=== PATIENT | female | born 1970 | race Hispanic/Latino ===

== ENCOUNTER 2018-01-08 14:41 | Observation (INO) | payer OTHER ==
[~2018-01-08] VITALS: Ht 167.6 cm; Wt 82.1 kg
[2018-01-08 16:12] VITALS: BP 144/73
[2018-01-08 16:18] LABS: BASOPHILS % (AUTO) 0.5 % (0.0-5.0); HEMATOCRIT 42.4 % (36-48); LYMPHOCYTES % (AUTO) 25.6 % (21.0-51.0); MEAN CORPUSCULAR HEMOGLOBIN 30.9 pg (27.0-33.0); MEAN CORPUSCULAR HGB CONC 33.6 g/dL (32.0-36.0); NEUTROPHILS % (AUTO) 66.9 % (40.0-77.0); PLATELET COUNT (AUTO) 258 K/uL (130-400); RED BLOOD CELL COUNT(AUTO) 4.61 MIL/uL (4.00-5.50); RED CELL DISTRIBUTION WIDTH 13.6 % (11.0-15.5); WHITE BLOOD COUNT (AUTO) 11.2 K/uL (4.8-10.8)
[2018-01-08 16:30] LABS: CREATININE 0.7 mg/dL (0.5-1.5); POTASSIUM 3.6 mmol/L (3.5-5.1)
[2018-01-08] MEDS ORDERED: TRAZ-185 PO (16:32)
[2018-01-08] MEDS ORDERED: ZOLP12.52 PO (16:32)
[2018-01-09] VITALS (29 sets, daily range): BP systolic 84–108; BP diastolic 50–70
[2018-01-09] MEDS ORDERED: LIDOCAINE PF 2% 5ML ABBOJECT ONE (06:41)
[2018-01-09] MEDS ORDERED: ONDANSETRON HCL 4 MG/2 ML VIAL ONE (06:41)
[2018-01-09] MEDS ORDERED: PROPOFOL 10 MG/ML 20ML VIAL IV ONE ×2 (06:42→10:24)
[2018-01-09] MEDS ORDERED: FAMOTIDINE/PF 20 MG/2 ML VIAL IV ONE (06:50)
[2018-01-09] MEDS ORDERED: KETAMINE 50MG/ML SYRINGE 50 MG/ML DISP.SYRIN IV ONE (06:52)
[2018-01-09] MEDS ORDERED: ACETAMINOPHEN EXTRA STRENGTH 500 MG TABLET ONE (08:02)
[2018-01-09] MEDS ORDERED: PREGABALIN 100 MG CAPSULE ONE (08:03)
[2018-01-09] MEDS: DEXMEDETOMIDINE HCL 400 MCG in SODIUM CHLORIDE 0.9% 96 ML IV SCH (08:15)
[2018-01-09] MEDS ORDERED: ROPIVACAINE 0.5% 5MG/ML 30ML IJ ONE ×2 (08:34→08:36)
[2018-01-09] MEDS ORDERED: DEXAMETHASONE SOD PHOSPHATE 4 MG/ML 1ML VIAL ONE (08:34)
[2018-01-09] MEDS ORDERED: MIDAZOLAM HCL 1 MG/ML 2ML VIAL ONE ×2 (08:39→10:25)
[2018-01-09] MEDS ORDERED: LACTATED RINGERS 1000ML 1,000 ML IV ONE (08:46)
[2018-01-09] MEDS: CEFAZOLIN SODIUM 1 GM VIAL ONE ×2 (08:49→10:17)
[2018-01-09] MEDS ORDERED: FENTANYL CITRATE PF 50 MCG/1 ML 2ML VIAL ONE ×3 (09:47→13:37)
[2018-01-09] MEDS ORDERED: EPHEDRINE SULFATE 50 MG/ML AMPULE ONE (10:26)
[2018-01-09] MEDS ORDERED: CEFAZOLIN SODIUM 1 GM VIAL ONE (10:28)
[2018-01-09] MEDS ORDERED: PHENYLEPHRINE HCL 10 MG/ML 1ML VIAL IV ONE (12:18)
[2018-01-09] MEDS ORDERED: MEPERIDINE-PF 25 MG/ML SYG ONE ×2 (13:06→13:17)
[2018-01-09] MEDS ORDERED: OXYCODONE HCL 5 MG TAB PO PRN (13:30)
[2018-01-09] MEDS ORDERED: TRAMADOL HCL 50 MG TABLET PO PRN (13:30)
[2018-01-09] MEDS ORDERED: POTASSIUM CHLORIDE 20 MEQ ERTAB PO PRN (13:30)
[2018-01-09] MEDS ORDERED: PROMETHAZINE HCL 25 MG/ML 1ML AMPULE IM PRN (13:30)
[2018-01-09] MEDS ORDERED: DiphenhydrAMINE HCL 50 MG/ML VIAL IVP PRN (13:30)
[2018-01-09] MEDS ORDERED: DIPHENHYDRAMINE HCL 25 MG CAPSULE PO PRN (13:30)
[2018-01-09] MEDS ORDERED: LIDOCAINE HCL-MPF 1% 2ML VIAL IVP PRN (13:30)
[2018-01-09] MEDS ORDERED: CALCIUM CARBONATE 500 MG TABLET PO PRN (13:30)
[2018-01-09] MEDS ORDERED: POTASSIUM CHLORIDE 20MEQ/100ML 100 ML IV PRN (13:30)
[2018-01-09] MEDS ORDERED: NALOXONE HCL 0.4 MG/1 ML ML IVP PRN (13:30)
[2018-01-09] MEDS ORDERED: FERROUS FUMARATE 324 MG TABLET PO PRN (13:30)
[2018-01-09] MEDS ORDERED: POTASSIUM CHLORIDE 10% ELIXIR 20 MEQ/15 ML UDCUP PO PRN (13:30)
[2018-01-09] MEDS: ACETAMINOPHEN EXTRA STRENGTH 500 MG TABLET PO SCH ×2 (14:25→21:10)
[2018-01-09] MEDS: KETOROLAC TROMETHAMINE 30MG/ML IV PRN ×2 (15:47→23:27)
[2018-01-09] MEDS: SODIUM CHLORIDE 0.9% 1000ML 1,000 ML IV SCH (15:50)
[2018-01-09] MEDS: MEPERIDINE 10MG/ML 50ML PCA 50 ML IV PRN (16:30)
[2018-01-09] MEDS: CEFAZOLIN SODIUM 1 GM VIAL IVP SCH (18:11)
[2018-01-09] MEDS: FAMOTIDINE 20MG TAB 20 MG TAB PO SCH (20:10)
[2018-01-09] MEDS: CELECOXIB 200 MG CAP PO SCH (20:10)
[2018-01-09] MEDS: ASPIRIN 325 MG TABLET PO SCH (20:10)
[2018-01-09] MEDS: PREGABALIN 25 MG CAP PO SCH (20:10)
[2018-01-09] MEDS ORDERED: ZOLPIDEM TARTRATE 5 MG TAB PO SCH (21:00)
[2018-01-09] MEDS ORDERED: TRAZODONE HCL 50 MG TAB PO SCH (21:00)
[2018-01-09] MEDS: OXYCODONE HCL 5 MG TAB PO PRN (23:28)
[2018-01-09] MEDS ORDERED: LORAZEPAM 2 MG/ML 1 ML VIAL IVP ONE (23:45)
[2018-01-10] MEDS ORDERED: LORAZEPAM 2 MG/ML 1 ML VIAL ONE (01:11)
[2018-01-10] MEDS: CEFAZOLIN SODIUM 1 GM VIAL IVP SCH (01:30)
[2018-01-10 04:27] VITALS: BP 119/69
[2018-01-10 04:29] VITALS: BP 97/49
[2018-01-10] MEDS: ACETAMINOPHEN EXTRA STRENGTH 500 MG TABLET PO SCH ×2 (06:36→13:09)
[2018-01-10 07:55] VITALS: BP 110/71
[2018-01-10] MEDS: PREGABALIN 25 MG CAP PO SCH (08:00)
[2018-01-10] MEDS: CELECOXIB 200 MG CAP PO SCH (08:00)
[2018-01-10] MEDS: ASPIRIN 325 MG TABLET PO SCH (08:00)
[2018-01-10] MEDS: FAMOTIDINE 20MG TAB 20 MG TAB PO SCH (08:00)
[2018-01-10] MEDS: DEXMEDETOMIDINE HCL 400 MCG in SODIUM CHLORIDE 0.9% 96 ML IV SCH (08:15)
[2018-01-10] MEDS ORDERED: TAMSULOSIN HCL 0.4 MG CAP.ER.24H PO SCH (09:00)
[2018-01-10] MEDS ORDERED: POLYETHYLENE GLYCOL 3350 17 GM POWD.PACK PO SCH (09:00)
[2018-01-10] MEDS: PSYLLIUM SEED 1 EACH PACKET PO SCH ×2 (12:00→13:09)
[2018-01-10] MEDS: MEPERIDINE 10MG/ML 50ML PCA 50 ML IV PRN (13:10)
[2018-01-10] MEDS: SODIUM CHLORIDE 0.9% 1000ML 1,000 ML IV SCH ×2 (13:10→13:26)
[2018-01-10 13:20] VITALS: BP 99/50
[2018-01-10] MEDS: KETOROLAC TROMETHAMINE 30MG/ML IV PRN ×2 (14:39→19:56)
[2018-01-10] MEDS: OXYCODONE HCL 5 MG TAB PO PRN ×2 (14:39→19:56)
[2018-01-10 16:59] VITALS: BP 104/69
[2018-01-10] MEDS ORDERED: OXYC10TA58 PO (19:13)
[2018-01-10] MEDS ORDERED: ACET-66 PO (19:13)
[2018-01-10 19:40] VITALS: BP 102/65
[2018-01-11] MEDS ORDERED: BISACODYL 5 MG TABLET.DR PO PRN (13:30)
[2018-01-12] MEDS ORDERED: BISACODYL 10 MG SUPP.RECT RC PRN (13:30)
== END 2018-01-10 21:00 | disposition home or self-care (01) ==
LOC: EDSTATUS 15:45 → DAHIP 01-09 06:15 → 4AH 01-09 13:49
PROVIDERS: ADMIT Orthopaedic Surgery; ATTEND Orthopaedic Surgery
DX: T87.89 Other complications of amputation stump (principal); L91.0 Hypertrophic scar; F43.10 Post-traumatic stress disorder, unspecified; F41.9 Anxiety disorder, unspecified; F32.9 Major depressive disorder, single episode, unspecified; Z98.42 Cataract extraction status, left eye; Z82.49 Family history of ischemic heart disease and other diseases of the circulatory system; Z90.710 Acquired absence of both cervix and uterus; Z23 Encounter for immunization; Z88.5 Allergy status to narcotic agent
CPT/HCPCS: 27884; 36415; 80048; 85025; 88304; 88311; 96365; 96366 ×2; 96375 ×2; 96376 ×2; A4649 ×2; A4930 ×2; A6223; C1713; G0008; G0378 ×40; J0690 ×4; J1100; J1885 ×4; J2001; J2060; J2175 ×4; J2250 ×2; J2370; J2405; J2704 ×2; J2795 ×2; J3010 ×3; J3490 ×4; J7030; J7120; Q2038

== ENCOUNTER 2018-01-19 23:14 | Inpatient (IN) | payer OTHER ==
[~2018-01-19] VITALS: Ht 167.6 cm; Wt 81.6 kg
[~2018-01-19 23:14] MED LIST: ACET-66 PO; OXYC10TA58 PO; TRAZ-185 PO; ZOLP12.52 PO
[2018-01-19] MEDS ORDERED: HYDROMORPHONE 1 MG/1 ML AMP ONE (23:55)
[2018-01-20] VITALS (30 sets, daily range): BP systolic 96–139; BP diastolic 50–78
[2018-01-20 01:11] LABS: CREATININE 0.6 mg/dL (0.5-1.5); POTASSIUM 3.7 mmol/L (3.5-5.1)
[2018-01-20 01:15] LABS: ALBUMIN 3.1 g/dL (3.5-5.0); BILIRUBIN,TOTAL 0.2 mg/dL (0.2-1.0)
[2018-01-20 01:26] LABS: BASOPHILS % (AUTO) 0.8 % (0.0-5.0); EOSINOPHILS % (AUTO) 1.2 % (0.0-8.0); HEMATOCRIT 33.4 % (36-48); LYMPHOCYTES % (AUTO) 19.9 % (21.0-51.0); MEAN CORPUSCULAR HGB CONC 33.6 g/dL (32.0-36.0); MEAN CORPUSCULAR VOLUME 92.2 fL (79-99); MONOCYTES % (AUTO) 7.2 % (3.0-13.0); NEUTROPHILS % (AUTO) 70.9 % (40.0-77.0); PLATELET COUNT (AUTO) 378 K/uL (130-400); RED BLOOD CELL COUNT(AUTO) 3.63 MIL/uL (4.00-5.50); RED CELL DISTRIBUTION WIDTH 13.5 % (11.0-15.5); WHITE BLOOD COUNT (AUTO) 11.7 K/uL (4.8-10.8)
[2018-01-20 01:36] LABS: INR 0.89 (0.85-1.15); PARTIAL THROMBOPLASTIN TIME 29.9 SEC (26.3-35.5); PROTHROMBIN TIME 9.4 SEC (9.6-11.6)
[2018-01-20] MEDS ORDERED: HYDROMORPHONE 1 MG/1 ML AMP ONE ×3 (02:07→10:00)
[2018-01-20] MEDS ORDERED: VANCOMYCIN 1GM+NS 250ML 250 ML IV ONE (02:29)
[2018-01-20] MEDS ORDERED: VANCOMYCIN PROTOCOL PER PHARMACY IV SCH (03:15)
[2018-01-20] MEDS ORDERED: CEFTAZIDIME PENTAHYDRATE 1 GM/VIAL ONE (03:22)
[2018-01-20] MEDS ORDERED: HYDROMORPHONE PCA 10 MG/50 ML 50 ML IV ONE (03:24)
[2018-01-20] MEDS: CEFTAZIDIME PENTAHYDRATE 1 GM/VIAL IVP SCH ×3 (03:48→18:56)
[2018-01-20] MEDS ORDERED: PHARMACY COMMUNICATION MISC SCH ×2 (04:00→04:15)
[2018-01-20] MEDS ORDERED: NALOXONE HCL 0.4 MG/1 ML ML IVP PRN (06:30)
[2018-01-20] MEDS ORDERED: PROPOFOL 10 MG/ML 20ML VIAL IV ONE ×2 (07:16→08:06)
[2018-01-20] MEDS ORDERED: LIDOCAINE PF 2% 5ML ABBOJECT ONE (07:16)
[2018-01-20] MEDS ORDERED: DEXAMETHASONE SOD PHOSPHATE 10MG/ML 1ML VIAL ONE ×2 (07:16→07:17)
[2018-01-20] MEDS ORDERED: FENTANYL CITRATE PF 50 MCG/1 ML 2ML VIAL ONE ×2 (07:16→08:16)
[2018-01-20] MEDS ORDERED: ONDANSETRON HCL 4 MG/2 ML VIAL ONE ×2 (07:16→07:17)
[2018-01-20] MEDS ORDERED: MIDAZOLAM HCL 1 MG/ML 2ML VIAL ONE ×2 (07:16→09:36)
[2018-01-20] MEDS ORDERED: CEFAZOLIN SODIUM 1 GM VIAL ONE ×2 (07:30→08:26)
[2018-01-20] MEDS ORDERED: MEPERIDINE-PF 25 MG/ML SYG ONE (09:27)
[2018-01-20] MEDS ORDERED: POTASSIUM CHLORIDE 20MEQ/100ML 100 ML IV PRN (09:30)
[2018-01-20] MEDS ORDERED: POTASSIUM CHLORIDE 20 MEQ ERTAB PO PRN (09:30)
[2018-01-20] MEDS ORDERED: DIPHENHYDRAMINE HCL 25 MG CAPSULE PO PRN (09:30)
[2018-01-20] MEDS ORDERED: POTASSIUM CHLORIDE 10% ELIXIR 20 MEQ/15 ML UDCUP PO PRN (09:30)
[2018-01-20] MEDS ORDERED: CALCIUM CARBONATE 500 MG TABLET PO PRN (09:30)
[2018-01-20] MEDS ORDERED: DiphenhydrAMINE HCL 50 MG/ML VIAL IVP PRN (09:30)
[2018-01-20] MEDS ORDERED: LIDOCAINE HCL-MPF 1% 2ML VIAL IVP PRN (09:30)
[2018-01-20] MEDS: SODIUM CHLORIDE 0.9% 1000ML 1,000 ML IV SCH ×2 (11:08→21:21)
[2018-01-20] MEDS: KETOROLAC TROMETHAMINE 30MG/ML IV PRN (12:31)
[2018-01-20] MEDS: VANCOMYCIN 1GM+NS 250ML 250 ML IV SCH ×2 (13:47→21:20)
[2018-01-20] MEDS: ACETAMINOPHEN EXTRA STRENGTH 500 MG TABLET PO SCH ×2 (13:47→21:19)
[2018-01-20] MEDS ORDERED: PREGABALIN 75 MG CAPSULE PO SCH (21:00)
[2018-01-20] MEDS: FAMOTIDINE 20MG TAB 20 MG TAB PO SCH (21:20)
[2018-01-20] MEDS: TRAZODONE HCL 50 MG TAB PO SCH (21:20)
[2018-01-20] MEDS: ZOLPIDEM TARTRATE 5 MG TAB PO SCH (21:30)
[2018-01-20] MEDS ORDERED: ZOLPIDEM TARTRATE 5 MG TAB ONE (21:46)
[2018-01-20] MEDS ORDERED: PREGABALIN 25 MG CAP ONE (23:06)
[2018-01-21 03:00] VITALS: BP 98/65
[2018-01-21] MEDS: CEFTAZIDIME PENTAHYDRATE 1 GM/VIAL IVP SCH ×3 (04:41→21:31)
[2018-01-21] MEDS: VANCOMYCIN 1GM+NS 250ML 250 ML IV SCH ×3 (04:41→21:49)
[2018-01-21] MEDS: SODIUM CHLORIDE 0.9% 1000ML 1,000 ML IV SCH (04:51)
[2018-01-21] MEDS: ACETAMINOPHEN EXTRA STRENGTH 500 MG TABLET PO SCH ×3 (04:51→20:19)
[2018-01-21] MEDS: HYDROMORPHONE PCA 10MG/50 ML ( 0.2 MG/ML ) IV PRN (04:57)
[2018-01-21 07:39] VITALS: BP 106/57
[2018-01-21] MEDS: POLYETHYLENE GLYCOL 3350 17 GM POWD.PACK PO SCH (08:56)
[2018-01-21] MEDS: FAMOTIDINE 20MG TAB 20 MG TAB PO SCH ×2 (08:56→20:19)
[2018-01-21] MEDS: KETOROLAC TROMETHAMINE 30MG/ML IV PRN ×3 (08:57→21:31)
[2018-01-21] MEDS ORDERED: ENOXAPARIN SODIUM 40 MG/0.4 ML SYRINGE SQ SCH (09:00)
[2018-01-21] MEDS: PREGABALIN 25 MG CAP PO SCH ×2 (09:29→20:19)
[2018-01-21 11:12] VITALS: BP 100/55
[2018-01-21 16:24] VITALS: BP 117/59
[2018-01-21 19:15] VITALS: BP 109/74
[2018-01-21] MEDS: ZOLPIDEM TARTRATE 5 MG TAB PO SCH (21:30)
[2018-01-21] MEDS: TRAZODONE HCL 50 MG TAB PO SCH (21:30)
[2018-01-22] VITALS (29 sets, daily range): BP systolic 97–145; BP diastolic 50–88
[2018-01-22] MEDS: CEFTAZIDIME PENTAHYDRATE 1 GM/VIAL IVP SCH ×3 (03:25→19:56)
[2018-01-22] MEDS: ACETAMINOPHEN EXTRA STRENGTH 500 MG TABLET PO SCH ×3 (04:27→19:55)
[2018-01-22] MEDS ORDERED: LACTATED RINGERS 1000ML 1,000 ML IV ONE (05:57)
[2018-01-22] MEDS: VANCOMYCIN 1GM+NS 250ML 250 ML IV SCH ×3 (06:09→21:05)
[2018-01-22 06:33] LABS: MEAN CORPUSCULAR HEMOGLOBIN 31.1 pg (27.0-33.0); MEAN CORPUSCULAR HGB CONC 33.8 g/dL (32.0-36.0); MEAN CORPUSCULAR VOLUME 91.9 fL (79-99); NUCLEATED RED BLOOD CELLS 0.1 % (0.0-0.19); PLATELET COUNT (AUTO) 437 K/uL (130-400); RED BLOOD CELL COUNT(AUTO) 2.83 MIL/uL (4.00-5.50); RED CELL DISTRIBUTION WIDTH 14.1 % (11.0-15.5); WHITE BLOOD COUNT (AUTO) 9.4 K/uL (4.8-10.8)
[2018-01-22] MEDS ORDERED: MIDAZOLAM HCL 1 MG/ML 2ML VIAL ONE (06:39)
[2018-01-22] MEDS ORDERED: LIDOCAINE PF 2% 5ML ABBOJECT ONE (06:39)
[2018-01-22] MEDS ORDERED: PROPOFOL 10 MG/ML 20ML VIAL IV ONE (06:39)
[2018-01-22] MEDS: SODIUM CHLORIDE 0.9% 1000ML 1,000 ML IV SCH ×3 (06:40→17:47)
[2018-01-22] MEDS ORDERED: FENTANYL CITRATE PF 50 MCG/1 ML 2ML VIAL ONE ×4 (06:40→08:59)
[2018-01-22] MEDS ORDERED: GENTAMICIN SULFATE 80 MG/2 ML VIAL ONE (06:44)
[2018-01-22 06:46] LABS: CREATININE 0.6 mg/dL (0.5-1.5); POTASSIUM 3.8 mmol/L (3.5-5.1)
[2018-01-22] MEDS ORDERED: POTASSIUM CHLORIDE 10% ELIXIR 20 MEQ/15 ML UDCUP PO PRN (08:00)
[2018-01-22] MEDS ORDERED: POTASSIUM CHLORIDE 20MEQ/100ML 100 ML IV PRN (08:00)
[2018-01-22] MEDS ORDERED: POTASSIUM CHLORIDE 20 MEQ ERTAB PO PRN (08:00)
[2018-01-22] MEDS ORDERED: LIDOCAINE HCL-MPF 1% 2ML VIAL IVP PRN (08:00)
[2018-01-22] MEDS ORDERED: MEPERIDINE-PF 25 MG/ML SYG ONE ×3 (08:17→08:51)
[2018-01-22] MEDS ORDERED: HYDROMORPHONE 1 MG/1 ML AMP ONE ×2 (08:35→09:57)
[2018-01-22] MEDS ORDERED: PROMETHAZINE HCL 25 MG/ML 1ML AMPULE IM ONE (08:42)
[2018-01-22] MEDS: ENOXAPARIN SODIUM 40 MG/0.4 ML SYRINGE SQ SCH (09:00)
[2018-01-22] MEDS: FAMOTIDINE 20MG TAB 20 MG TAB PO SCH ×2 (09:00→19:55)
[2018-01-22] MEDS: POLYETHYLENE GLYCOL 3350 17 GM POWD.PACK PO SCH (09:00)
[2018-01-22] MEDS: KETOROLAC TROMETHAMINE 30MG/ML IV PRN ×3 (09:21→17:26)
[2018-01-22] MEDS: HYDROMORPHONE PCA 10MG/50 ML ( 0.2 MG/ML ) IV PRN (11:17)
[2018-01-22] MEDS: PREGABALIN 25 MG CAP PO SCH ×2 (11:24→19:56)
[2018-01-22] MEDS ORDERED: VANCOMYCIN 1.75 GM in SODIUM CHLORIDE 0.9% 250 ML IV SCH (14:11)
[2018-01-22] MEDS: ZOLPIDEM TARTRATE 5 MG TAB PO SCH (21:05)
[2018-01-22] MEDS: TRAZODONE HCL 50 MG TAB PO SCH (21:05)
[2018-01-23] MEDS: CEFTAZIDIME PENTAHYDRATE 1 GM/VIAL IVP SCH ×2 (04:14→11:51)
[2018-01-23] MEDS: ACETAMINOPHEN EXTRA STRENGTH 500 MG TABLET PO SCH ×2 (04:14→14:23)
[2018-01-23] MEDS: SODIUM CHLORIDE 0.9% 1000ML 1,000 ML IV SCH (04:14)
[2018-01-23] MEDS: KETOROLAC TROMETHAMINE 30MG/ML IV PRN ×2 (04:22→10:22)
[2018-01-23] MEDS: VANCOMYCIN 1GM+NS 250ML 250 ML IV SCH ×2 (05:52→14:24)
[2018-01-23 08:12] VITALS: BP 99/50
[2018-01-23] MEDS: PREGABALIN 25 MG CAP PO SCH (08:56)
[2018-01-23] MEDS: POLYETHYLENE GLYCOL 3350 17 GM POWD.PACK PO SCH ×2 (08:56→09:00)
[2018-01-23] MEDS: FAMOTIDINE 20MG TAB 20 MG TAB PO SCH (08:56)
[2018-01-23] MEDS: ENOXAPARIN SODIUM 40 MG/0.4 ML SYRINGE SQ SCH (08:57)
[2018-01-23 11:27] VITALS: BP 98/54
[2018-01-23] MEDS ORDERED: LEVO750T21 PO (15:50)
[2018-01-23] MEDS ORDERED: OXYC5 PO (15:50)
== END 2018-01-23 18:39 | disposition home or self-care (01) | DRG 317 ==
LOC: EDH 23:14 → EDHIP 23:15 → 4AH 01-20 02:41
PROVIDERS: ADMIT Orthopaedic Surgery; ATTEND Orthopaedic Surgery
PROC: 0JBP0ZZ Excision of Left Lower Leg Subcutaneous Tissue and Fascia, Open Approach (ICD-10-PCS; principal; 2018-01-21)
PROC: 0KBT0ZZ Excision of Left Lower Leg Muscle, Open Approach (ICD-10-PCS; 2018-01-22)
DX: T87.44 Infection of amputation stump, left lower extremity (principal); F17.210 Nicotine dependence, cigarettes, uncomplicated; Y83.5 Amputation of limb(s) as the cause of abnormal reaction of the patient, or of later complication, without mention of misadventure at the time of the procedure; Z90.710 Acquired absence of both cervix and uterus
CPT/HCPCS: 36415; 80048; 80053; 80202; 83605; 85025; 85027; 85610; 85730; 87040; 87070; 87076; 87077; 87186; 87205; A4218; J0690; J0713; J1100; J1170; J1580; J1650; J1885; J2001; J2175; J2250; J2405; J2550; J2704; J3010; J3370; J7030; J7120

== ENCOUNTER → 2018-10-28 | Outpatient (CLI) | payer OTHER ==
[~2018-10-28] MED LIST changes: +LEVO750T21 PO; +OXYC5 PO
== END | disposition home or self-care (01) ==
LOC: RAH 13:49
PROVIDERS: ATTEND Physical Medicine & Rehabilitation
DX: S83.281A Other tear of lateral meniscus, current injury, right knee, initial encounter (principal); M17.11 Unilateral primary osteoarthritis, right knee; M25.461 Effusion, right knee; X58.XXXA Exposure to other specified factors, initial encounter; Y93.89 Activity, other specified; Y92.89 Other specified places as the place of occurrence of the external cause; Y99.8 Other external cause status
CPT/HCPCS: 73721